=== PATIENT | female | born 1975 | race Caucasian/White ===

== ENCOUNTER 2020-02-17 00:36 | Observation (INO) ==
[2020-02-17] MEDS ORDERED: 0.9 % Sodium Chloride 1,000 ML IVC ONE (00:57)
[2020-02-17] MEDS ORDERED: Morphine Sulfate 2 MG/ML SYRINGE IVP ONE (01:42)
[2020-02-17] MEDS ORDERED: Ondansetron 4 MG/2 ML VIAL IVP ONE ×2 (01:42→11:57)
[2020-02-17 01:43] LABS: Bacteria,Urine Few per hpf (None-Few); Bilirubin,Urine Negative (Negative); Blood,Urine Negative (Negative); Clarity,Urine Clear (Clear); Color,Urine Yellow (Yellow); Glucose,Urine (UA) Normal (Normal); Ketones,Urine 60 mg/dL (Negative); Leukocyte Esterase,Urine Negative (Negative); Mucus,Urine Few per lpf (None-Few); Nitrite,Urine Negative (Negative); PH,Urine 5.5 pH Units (5.0-8.0); Protein,Urine 30 mg/dL (Neg-Trace); RBC,Urine 0-3 per hpf (0-3); Specific Gravity,Urine > 1.030 (1.010-1.025); Squamous Epithelial Cell,Urine Few per hpf (None-Few); Urobilinogen,Urine Normal (Normal); WBC,Urine 0-3 per hpf (0-3)
[2020-02-17 02:15] LABS: Basophils # 0.1 K/mcL (0.0-0.2); Basophils % 0.3 %; Hematocrit 39.3 % (35.3-44.9); Hemoglobin 12.8 g/dL (11.5-15.4); Immature Granulocytes % 0.3 % (0-4); Lymphocytes # 0.9 K/mcL (0.6-4.6); Lymphocytes % 4.8 %; Mean Corpuscular HGB Conc 32.6 g/dL (31.6-35.5); Mean Corpuscular Hemoglobin 31.8 pg (28.0-33.3); Mean Corpuscular Volume 97.8 fL (83.0-100.0); Mean Platelet Volume 10.1 fL (9.4-12.4); Monocytes # 0.3 K/mcL (0.0-1.3); Monocytes % 1.5 %; Neutrophils # 17.3 K/mcL (1.6-8.9); Platelet Count 282 K/mcL (140-400); Red Blood Count 4.02 M/mcL (3.82-4.97); Red Cell Distribution Width 12.2 % (11.5-14.5); Segmented Neutrophils % 93.1 %; White Blood Count 18.6 K/mcL (4.3-11.1)
[2020-02-17 02:39] LABS: Alanine Aminotransferase 20 Units/L (7-52); Albumin 4.1 g/dL (3.5-5.7); Albumin/Globulin Ratio 1.5 (1.1-2.2); Alkaline Phosphatase 42 Units/L (34-104); Aspartate Amino Transferase 22 Units/L (13-39); BUN/Creatinine Ratio 23 (6-26); Bilirubin,Indirect 0.4 mg/dL (0.0-1.0); Bilirubin,Total 0.4 mg/dL (0.3-1.0); Blood Urea Nitrogen 22 mg/dL (6-20); Calcium 9.3 mg/dL (8.6-10.3); Carbon Dioxide 25 mEq/L (23-29); Chloride 102 mEq/L (98-107); Globulin 2.7 g/dL (2.4-3.5); Glucose 151 mg/dL (70-105); Lipase 4 Units/L (11-82); Osmolality,Calculated 288 (280-300); Potassium 3.8 mEq/L (3.5-5.1); Sodium 136 mEq/L (136-145); Total Protein 6.8 g/dL (6.4-8.9); Troponin I < 0.03 ng/mL (< 0.04); eGFR For African Americans > 60 (> 60); eGFR For Non-African Americans > 60 (> 60)
[2020-02-17] MEDS ORDERED: Naloxone 0.4 MG/ML INJ IVP PRN ×2 (04:11→11:57)
[2020-02-17] MEDS ORDERED: *HR* Promethazine 25 MG/ML VIAL IVP PRN (04:11)
[2020-02-17] MEDS ORDERED: Acetaminophen 325 MG TABLET PO PRN (04:11)
[2020-02-17] MEDS ORDERED: Morphine Sulfate 2 MG/ML SYRINGE IVP PRN (04:14)
[2020-02-17] MEDS: 0.9 % Sodium Chloride 1,000 ML IVC SCH ×2 (04:33→08:49)
[2020-02-17] MEDS ORDERED: *HR* Midazolam HCl 2 MG/2 ML VIAL ONE (11:49)
[2020-02-17] MEDS ORDERED: Ondansetron 4 MG/2 ML VIAL ONE (11:49)
[2020-02-17] MEDS ORDERED: *HR* FentaNYL (PF) 100 MCG/2 ML VIAL ONE (11:49)
[2020-02-17] MEDS ORDERED: Lidocaine -MPF 2% 2 ML VIAL ONE (11:49)
[2020-02-17] MEDS ORDERED: Dexamethasone 4 MG/ML VIAL ONE (11:49)
[2020-02-17] MEDS ORDERED: *HR* Propofol 200 MG/20 ML VIAL IVP ONE (11:50)
[2020-02-17] MEDS ORDERED: *HR* HYDROmorphone PF 0.5 MG/0.5 ML SYRINGE IVP PRN (11:57)
[2020-02-17] MEDS ORDERED: Albuterol 2.5 MG/3 ML NEBULIZER IH PRN (11:57)
[2020-02-17] MEDS ORDERED: *HR* OxyCODONE Immed Rel 5 MG TABLET PO PRN (11:57)
[2020-02-17] MEDS ORDERED: *HR* FentaNYL (PF) 100 MCG/2 ML VIAL IVP PRN (11:57)
[2020-02-17] MEDS ORDERED: flumazeniL 0.5 MG/5 ML VIAL IVP PRN (11:57)
[2020-02-17] MEDS ORDERED: CeFAZolin 2 GM/120 ML BAG IVPB ONE (11:58)
[2020-02-17] MEDS ORDERED: Ringers Solution, Lactated 1,000 ML IVC ONE (11:58)
[2020-02-17] MEDS ORDERED: Isovue-300 50ML VIAL ONE (12:04)
[2020-02-17 15:36] VITALS: BP 99/64
== END 2020-02-17 19:17 | disposition home or self-care (01) ==
LOC: 3ANU 00:36 → EMEROOARM 00:36 → SUATTDRO 03:42 → 3ANU 04:41
PROVIDERS: ADMIT Internal Medicine; ATTEND Family Medicine